=== PATIENT | male | born 1995 | race Caucasian/White ===

== ENCOUNTER → 2020-07-18 | Outpatient (CLI) | payer OTHER, BC ==
--- NOTE | 2020-07-21 14:35 | SLEEPCENT ---
NOCTURNAL POLYSOMNOGRAPHY DATE: 07/18/2020 ORDERED BY: MERCEDEZ Murray Nocturnal polysomnography was performed for evaluation of sleep physiology in this patient with a history of excessive somnolence and nonrestorative sleep. 9 hours and 12 minutes of data were reviewed. There were 505 minutes of sleep identified. Sleep latency was normal at 12 minutes. REM latency was slightly long at 120 minutes. Sleep architecture was good with four REM cycles. Overall sleep efficiency was 93%. The electrocardiogram showed a sinus rhythm with an average heart rate of 64 beats per minute. EEG showed reasonably normal waveforms for wake and sleep. There were 43 respiratory events identified of 10 seconds in duration or greater for an apnea-hypopnea index of 5.1. The events were not exclusive to sleep stage. They were seen in the supine posture. Arousals from respiratory events occurred 4.4 times per hour and oxygen desaturations were not seen below 90%. There was minimal activity in the limb leads. Snoring was noted over the course of the study. IMPRESSION: Mild positional obstructive sleep apnea syndrome (G47.33), apnea-hypopnea index 5.1. RECOMMENDATION: Sleep position retraining for avoidance of the supine posture should be attempted. Should the patient's symptoms persist or worse, referral [facility] to [facility] for pressure therapy could be considered.
== END ==
LOC: M SLEEP 20:00
PROVIDERS: ATTEND Nurse Practitioner Family
DX: G47.33 Obstructive sleep apnea (adult) (pediatric) (principal)

== ENCOUNTER → 2021-07-11 | Outpatient (CLI) | payer OTHER, BC | LOC: M SLEEP 20:00 | PROVIDERS: ATTEND Physician Assistant | DX: G47.33 Obstructive sleep apnea (adult) (pediatric) (principal); R06.83 Snoring ==